=== PATIENT | female | born 1970 | race Caucasian/White ===

== ENCOUNTER 2017-06-22 18:19 | Emergency (ER) | payer BC ==
[2017-06-22 19:32] VITALS: BP 112/68
--- NOTE | 2017-06-22 20:11 | UC ---
Throat Pain/Nasal Brant HPI - HPI Summary HPI Summary: 46 yo female with sore throat and HURTADO chills daughter lives at home and was dx with strep today yesterday they shared drink no n/v/d - History of Current Complaint Chief Complaint: UCGeneralIllness Stated Complaint: ST, HEADACHE Time Seen by Provider: 06/22/17 20:04 Hx Obtained From: Patient Hx Last Menstrual Period: 09/26/14 Onset/Duration: Gradual Onset, Lasting Hours Severity: Moderate Pain Intensity: 4 Pain Scale Used: 0-10 Numeric Associated Signs & Symptoms: Positive: Negative - Allergies/Home Medications Allergies/Adverse Reactions: Allergies Allergy/AdvReac Type Severity Reaction Status Date / Time Azithromycin [From Zithromax] Allergy Intermediate Diarrhea Verified 06/22/17 19 :25 Metronidazole [From Flagyl] Allergy Diarrhea Verified 06/22/17 19:25 Morphine Allergy Itching Verified 06/22/17 19:25 Trazodone AdvReac Severe Altered Verified 06/22/17 19:25 Mental Status Home Medications: Home Medications lamoTRIgine TAB(*) [Lamictal TAB(*)] 50 mg BEDTIME 06/22/17 [History Confirmed 06/22/17] PMH/Surg Hx/FS Hx/Imm Hx Previously Healthy: Yes - DJD, Hip replacement - Surgical History Surgical History: Yes Surgery Procedure, Year, and Place: tubal ligation, bilateral hernia repair. RECTOCELE REPAIR. Hiatal hernia. LEFT hip replacement - Family History Known Family History: Positive: Hypertension, Other - DJD - Social History Alcohol Use: None Alcohol Amount: 4 PER WEEK Substance Use Type: None Substance Use Comment - Amount & Last Used: STATES WILL AVOID PRIOR TO SURGERY Smoking Status (MU): Current Every Day Smoker Type: Cigarettes Amount Used/How Often: 1/2 PPD Have You Smoked in the Last Year: Yes When Did the Patient Quit Smoking/Using Tobacco: 3-4 YEARS AGO THEN SMOKED A LITTLE SUMMER 16 - Immunization History Most Recent Influenza Vaccination: 2017 Review of Systems Constitutional: Chills Skin: Negative Eyes: Negative ENT: Sore Throat Respiratory: Negative Cardiovascular: Negative Gastrointestinal: Negative Genitourinary: Negative Motor: Negative Neurovascular: Negative Musculoskeletal: Negative Neurological: Headache Psychological: Negative Is Patient Immunocompromised?: No All Other Systems Reviewed And Are Negative: Yes Physical Exam Triage Information Reviewed: Yes Appearance: Well-Appearing, No Pain Distress, Well-Nourished Vital Signs: Initial Vital Signs Temp 97.9 F 06/22/17 19:27 Pulse 99 06/22/17 19:27 Resp 16 06/22/17 19:27 BP 112/68 06/22/17 19:27 Pulse Ox 99 06/22/17 19:27 Vital Signs Reviewed: Yes Eyes: Positive: Conjunctiva Clear ENT: Positive: Hearing grossly normal, Pharyngeal erythema, Uvula midline. Negative: Tonsillar swelling, Tonsillar exudate, Hoarse voice, Dental tenderness , Sinus tenderness Neck: Positive: Supple, Nontender, No Lymphadenopathy Respiratory: Positive: Lungs clear, Normal breath sounds, No respiratory distress, No accessory muscle use Cardiovascular: Positive: RRR, No Murmur Musculoskeletal: Positive: ROM Intact, No Edema Neurological: Positive: Alert Psychological Exam: Normal Skin Exam: Normal Throat Pain/Nasal Course/Dx - Course Course Of Treatment: Strep (-) - Differential Dx/Diagnosis Provider Diagnoses: acute pharyngitis with household exposure to strep Discharge - Discharge Plan Condition: Stable Disposition: HOME Prescriptions: Amoxicillin PO (*) [Amoxicillin 875 MG (*)] 875 mg PO BID #20 tab Patient Education Materials: Pharyngitis (ED) Forms: *Work Release Referrals: Florin Regan MD [Primary Care Provider] - 3 Days (if not better)
== END 2017-06-22 20:15 | disposition home or self-care (01) ==
LOC: UCCORT 18:19
DX: J02.9 Acute pharyngitis, unspecified (principal); R51 Headache; Z96.642 Presence of left artificial hip joint; Z88.1 Allergy status to other antibiotic agents; Z88.5 Allergy status to narcotic agent; F17.210 Nicotine dependence, cigarettes, uncomplicated
CPT/HCPCS: 87651

== ENCOUNTER 2017-08-24 09:57 | Day surgery (SDC) | payer BC ==
[~2017-08-24 09:57] MED LIST: Buffered Lidocaine 0.9% SYRIN* 5 ML/SYR SYRINGE INTRADERM ONE; Dexamethasone IV* 4 MG/ML 1 ML (4 MG) IV SLOW PU ONE; Famotidine IV* 10 MG/ML 2 ML (20 mg) IV ONE; Levalbuterol 0.63MG/3ML NEB* UNIT OF USE INH ONE
[2017-08-24] MEDS ORDERED: Famotidine IV* 10 MG/ML 2 ML (20 mg) ONE (10:29)
[2017-08-24] MEDS ORDERED: Dexamethasone IV* 4 MG/ML 1 ML (4 MG) ONE (10:29)
[2017-08-24] MEDS ORDERED: Buffered Lidocaine 0.9% SYRIN* 5 ML/SYR SYRINGE ONE (10:30)
[2017-08-24] MEDS ORDERED: Levalbuterol 1.25MG/0.5ML NEB ONE (10:30)
[2017-08-24] MEDS ORDERED: Ketorolac INJ* 30 MG/ML 1 ML VIAL ONE (10:45)
[2017-08-24] MEDS ORDERED: fentaNYL* 50 MCG/ML 5 ML VIAL (250 MCG VIAL) ONE (10:45)
[2017-08-24] MEDS ORDERED: Ondansetron INJ* 2 MG/ML VIAL ONE (10:45)
[2017-08-24] MEDS ORDERED: Midazolam* 1 MG/ML 10 ML VIAL (10 MG) ONE (10:45)
[2017-08-24] MEDS ORDERED: Lidocaine 2% PF * 5 ML VIAL ONE (10:45)
[2017-08-24] MEDS ORDERED: Propofol* 10 MG/ML 20 ML BTL IV PUSH ONE (10:45)
[2017-08-24] MEDS ORDERED: Naloxone* 0.4 MG/ML 1 ML VIAL IV PRN (11:02)
[2017-08-24] MEDS ORDERED: DiMENhydriNATE IV* 50 MG/ML VIAL IV PUSH PRN (11:02)
[2017-08-24] MEDS ORDERED: oxyCODONE/Acetamin 5/325 MG* TAB PO PRN (11:02)
[2017-08-24] MEDS ORDERED: fentaNYL* 50 MCG/ML 2 ML VIAL (100 MCG VIAL) IV PRN (11:02)
[2017-08-24] MEDS ORDERED: Ondansetron INJ* 2 MG/ML VIAL IV PRN (11:02)
[2017-08-24] MEDS ORDERED: Scopolamine 1.5 mg* PATCH TRANSDERM PRN (11:02)
[2017-08-24 12:47] VITALS: BP 124/77
--- NOTE | 2017-08-24 21:39 | OP ---
OPERATIVE REPORT: DATE OF OPERATION: 08/24/17 DATE OF : 66 SURGEON: Russell Balbuena MD ANESTHESIA: General endotracheal tube. PRE-OP DIAGNOSIS: Menorrhagia. POST-OP DIAGNOSIS: Menorrhagia. OPERATIVE PROCEDURE: D and C, hysteroscopy, endometrial ablation. COMPLICATIONS: None. FINDINGS: Normal cavity on hysteroscopy. DESCRIPTION OF PROCEDURE: The patient identified, procedure identified as a D and C, hysteroscopy, e ndometrial ablation. The patient was taken to the operating room, prepped and draped in the usual fa shion in the dorsal lithotomy position under general anesthetic. Two single-tooth tenaculum was plac ed on the anterior lip of the cervix. The cervix was sounded to 6.5 cm and the cervical length was f ound to be 1.5 cm making the cavity length 5 cm. The hysteroscope was inserted. The above findings w ere noted. The hysteroscope was removed. The NovaSure device was opened. The array was checked. T he device was placed within the endometrial cavity and with several attempts at manipulation finally got up to a cavity width of 2.5 cm with the power setting of 69. CO2 perforation test was performed and the device passed, it was enabled and NovaSure ablation took place for 1 minute and 12 seconds. At the end of the procedure, good NovaSure ablation was noted. Small curette was inserted and sharp curettage performed with the small scant amount of tissue obtained. All sponge and instrument counts were correct. All instruments removed from the vagina and the patient returned to recovery room in stable condition. [id number] #: [id number]
== END 2017-08-24 12:49 | disposition home or self-care (01) ==
LOC: OR 09:57
PROVIDERS: ATTEND Obstetrics & Gynecology
DX: N94.3 Premenstrual tension syndrome (principal); N85.01 Benign endometrial hyperplasia; N92.0 Excessive and frequent menstruation with regular cycle; Z98.51 Tubal ligation status; Z87.891 Personal history of nicotine dependence
CPT/HCPCS: 88305; A9270-GY; J1100; J1885; J2250; J2405; J2704; J3010